=== PATIENT | female | born 1970 | race Caucasian/White ===

== ENCOUNTER 2016-11-19 14:56 | Emergency (ER) | payer OTHER ==
[~2016-11-19] VITALS: Ht 167.6 cm; Wt 62.0 kg
[2016-11-19 15:07] VITALS: BP 116/68; PULSE 90; RESP 16; TEMP 99.5; O2SAT 100
--- NOTE | 2016-11-19 15:26 | PD ---
HPI Chief Complaint: Laceration/Skin Injury Time Seen by Provider: 15:15 Travel History International Travel<30 days: No Contact w/Intl Traveler<30days: No Traveled to known affect area: No History of Present Illness HPI 46-year-old female presents emergency department for evaluation of laceration to her left third digit. Patient reports she was using hedge trimmers when she was cut by the mechanical tremors. She reports normal sensation and full range of motion of the digit. She reports pain at the site of the laceration. She decided to seek medical treatment she was unable to get the wound stopped bleeding. Tetanus immunization is up-to-date. [facility] Past Medical History Medical History: Denies Significant Hx Hx Anticoagulant Therapy: No Cancer: No Cardiovascular Problems: No Chemotherapy: No Cerebrovascular Accident: No Diabetes: No Diminished Hearing: No Endocrine: No Genitourinary: No Immune Disorder: No Musculoskeletal: No Neurologic: No Reproductive: No Respiratory: No Immunizations Current: Yes ?: Not Past Surgical History Abdominal Surgery: No Cardiac Surgery: No Ear Surgery: No Endocrine Surgery: No Eye Surgery: No Genitourinary Surgery: No Gynecologic Surgery: No Hysterectomy: No Oral Surgery: No Thoracic Surgery: No Other Surgery: Yes Social History Alcohol Use: No (QUIT 2014) Tobacco Use: No (quit many years ago) Substance Use: No Allergies-Medications (Allergen,Severity, Reaction): Coded Allergies: No Known Allergies (Verified , 11/19/16) Reported Meds & Prescriptions Reported Meds & Active Scripts Active No Active Prescriptions or Reported Medications Review of Systems Except as stated in HPI: all other systems reviewed are Neg Physical Exam Narrative GENERAL: Well-nourished, well-developed patient. SKIN: Focused skin assessment warm/dry. 1 cm laceration left second digit. HEAD: Normocephalic. EYES: No scleral icterus. No injection or drainage. NECK: Supple, trachea midline. No JVD or lymphadenopathy. CARDIOVASCULAR: Regular rate and rhythm without murmurs, gallops, or rubs. RESPIRATORY: Breath sounds equal bilaterally. No accessory muscle use. GASTROINTESTINAL: Abdomen soft, non-tender, nondistended. MUSCULOSKELETAL: No cyanosis, or edema. Left hand: 1 cm V-shaped laceration to the left second digit dorsal aspect. No tendon or vascular injury identified. No foreign body. Patient is able to flex and extend against resistance. The extremity is neurovascular intact. Data Data Last Documented VS Vital Signs Date Time Temp Pulse Resp B/P (MAP) Pulse Ox O2 Delivery O2 Flow Rate FiO2 11/19/16 15:07 99.5 90 16 116/68 (84) 100 Orders Orders Lidocaine 1% Inj (50 Ml) (Xylocaine 1% I (11/19/16 15:30) MDM Medical Decision Making Medical Screen Exam Complete: Yes Emergency Medical Condition: Yes Differential Diagnosis Finger laceration, rule out tendon injury, rule out foreign body Narrative Course 46-year-old female presents emergency department for evaluation of a small superficial laceration to the left second digit. Patient reports that injury occurred when her hand was clipped by a mechanical click. On exam there is no active bleeding. There is just 1 cm V-shaped laceration on the dorsal aspect of the digit. She has normal motor and sensation within the digit. I do not suspect any injury to the bone. Wound repaired with sutures. Wound care discussed return precautions discussed. Patient verbalizes understanding and agrees to plan. Procedures Procedure Narrative LACERATION LOCATION: Left second digit LENGTH: 1 cm NUMBER OF STITCHES/NAHUM: To REPAIR: The area of the laceration was prepped with Betadine and sterilely draped. Digital block with 1% lidocaine.. The wound was copiously irrigated and explored without evidence of foreign body, tendon injury or neurovascular injury. The wound was closed using 5-0 Ethilon. This was a single layer repair. A sterile dressing was applied. The patient was advised to keep the dressing clean and dry. Patient tolerated the procedure well. Diagnosis Primary Impression: Finger laceration Qualified Codes: S61.213A - Laceration without foreign body of left middle finger without damage to nail, initial encounter Referrals: Primary Care Physician Additional Instructions: Do not submerge the wound in water. Sutures need to be removed in 7-10 days. Return to the emergency department if he developed new or worsening symptoms. Scripts No Active Prescriptions or Reported Meds Disposition: 01 DISCHARGE HOME Condition: Stable Rosa Rahman Nov 19, 2016 15:26
[2016-11-19] MEDS ORDERED: LIDOCAINE HCL 1% 20 ML VIAL INFIL ONE (15:30)
[2016-11-19] MEDS ORDERED: LIDOCAINE HCL 1% 50 ML VIAL INFIL ONE ×2 (15:30)
== END 2016-11-19 16:06 | disposition home or self-care (01) ==
LOC: PHED 14:56 → PHEFT 16:06
DX: S61.213A Laceration without foreign body of left middle finger without damage to nail, initial encounter (principal); Z87.891 Personal history of nicotine dependence; W29.3XXA Contact with powered garden and outdoor hand tools and machinery, initial encounter; Y93.H2 Activity, gardening and landscaping
CPT/HCPCS: 12001

== ENCOUNTER 2017-10-18 19:42 | Inpatient (IN) ==
[2017-10-18] MEDS ORDERED: Aztreonam Inj 2 GM in Sodium Chloride 0.9% Inj 100 ML IV.SIG STA (20:58)
[2017-10-18] MEDS ORDERED: Vancomycin Inj 1,000 MG in Sodium Chlor 0.9% Inj 250 ML IV.SIG STA (20:58)
--- NOTE | 2017-10-18 20:59 | ED ---
HPI General Chief complaint: Skin/Abscess/Foreign Body Stated complaint: L knee DX cellulitis worse Source: patient Mode of arrival: ambulatory Limitations: no limitations History of Present Illness HPI narrative: Patient states that last Sunday she noticed what seemed like a bug bite to her left knee and some swelling. On Sunday she was seen at [facility] and diagnosed with cellulitis and placed on Keflex and Bactrim. Patient now returns stating that is getting worse and traveling down her entire leg. Patient states that she has been compliant with her medication. Onset (ago): day(s) (6) Location: left and lower extremity (Knee) Radiation: non-radiation Severity: moderate Severity scale (1-10): 8 Quality: sharp Pain Consistency: constant Relieving factors: none Exacerbating factors: none Associated symptoms: denies other symptoms Treatments prior to arrival: other (Keflex and Bactrim for approximately 4 days) Related Data Home Medications Medication Instructions Recorded Confirmed citalopram 40 mg PO DAILY 10/18/17 10/18/17 gabapentin 300 mg PO DAILY 10/18/17 10/18/17 trazodone 50 mg PO DAILY 10/18/17 10/18/17 Allergies Allergy/AdvReac Type Severity Reaction Status Date / Time No Known Allergies Allergy Uncoded 11/19/16 15:12 Review of Systems ROS: all other systems reviewed are negative PMFSH History History Provided By: Patient Medical History Medical History Anxiety (Acute) Insomnia (Acute) Neuropathy (Acute) Right wrist fracture (Acute) Surgical History Surgical History Status post wrist surgery (Acute) Family History Family History Other No pertinent family history Social History Social History Substance History: No History of Abuse Second Hand Smoke Exposure: No Smoking Status: Never smoker How Often Do You Have a Drink Containing Alcohol: Never Recent Travel in [place] within the Last 8 Weeks: No Recent Out of Country Travel within the Last 8 Weeks: No Immunization History Tetanus Immunization: <5 Years Tetanus Immunization Year if Known: 2015 Hx Influenza Vaccine This Season: No Exam Narrative Exam Narrative: GENERAL: Well-nourished, well-developed patient in no apparent distress. SKIN: Warm and dry. HEAD: Atraumatic. Normocephalic. EYES: Pupils equal and round. No scleral icterus. No injection or drainage. ENT: No nasal bleeding or discharge. Mucous membranes pink and moist. NECK: Trachea midline. No JVD. CARDIOVASCULAR: Regular rate and rhythm. no rubs or gallops RESPIRATORY: No accessory muscle use. Clear to auscultation. Breath sounds equal bilaterally. GASTROINTESTINAL: Abdomen soft, non-tender, nondistended. No rebound or guarding MUSCULOSKELETAL: Extremities without clubbing, cyanosis, or edema. No obvious deformities.....lateral to left patella is a half dollar wound mildly draining purulence, cellulitic changes and edema distally into left ankle region. (of note, initially started as dime size swelling on her knee cap area)...patient is able to flex/extend full rom and no ttp NEUROLOGICAL: Awake and alert. No obvious cranial nerve deficits. Motor grossly within normal limits. Five out of 5 muscle strength in the arms and legs. Normal speech. PSYCHIATRIC: Appropriate mood and affect; insight and judgment normal. Course Initial Documented Vital Signs Temperature 99.5 F 10/18/17 19:45 Pulse Rate 98 H 10/18/17 19:45 Respiratory Rate 18 10/18/17 19:45 Blood Pressure 131/71 10/18/17 19:45 Pulse Oximetry 98 10/18/17 19:45 Last Documented Vital Signs Temperature 98.6 F 10/19/17 15:34 Pulse Rate 81 10/19/17 15:34 Respiratory Rate 18 10/19/17 15:34 Blood Pressure 113/72 10/19/17 15:34 Pulse Oximetry 98 10/19/17 15:34 Medical Decision Making [facility] Narrative Medical Screen Exam Complete: Yes Emergency Medical Condition: Yes Differential Diagnosis Differential Diagnosis: DVT versus cellulitis versus lymphangitis versus abscess Medical Records Medical records reviewed: Yes I reviewed the patient's medical records. Lab Data Lab results reviewed: Yes I reviewed the patient's lab results. Result diagrams: 10/19/17 06:45 10/19/17 06:45 Lab Results 10/18/17 10/18/17 10/18/17 Range/Units 21:15 21:15 21:21 CBC w Diff Auto diff final WBC 8.4 (4.0-11.0) th/mm3 RBC 3.94 L (4.00-5.30) mil/mm3 Hgb 11.7 (11.6-15.3) gm/dL Hct 35.0 (35.0-46.0) % MCV 88.9 (80.0-100.0) fL MCH 29.8 (27.0-34.0) pg MCHC 33.5 (32.0-36.0) % RDW 14.4 (11.6-17.2) % Plt Count 411 (150-450) th/mm3 MPV 7.6 (7.0-11.0) fL Neut % (Auto) 62.9 (16.0-70.0) % Lymph % (Auto) 23.1 (9.0-44.0) % [place] % (Auto) 10.5 H (0.0-8.0) % Eos % (Auto) 2.9 (0.0-4.0) % Baso % (Auto) 0.6 (0.0-2.0) % Neut # (Auto) 5.3 (1.8-7.7) th/mm3 Lymph # (Auto) 1.9 (1.0-4.8) th/mm3 [place] # (Auto) 0.9 (0.0-0.9) th/mm3 Eos # (Auto) 0.2 (0.0-0.4) th/mm3 Baso # (Auto) 0.1 (0.0-0.2) th/mm3 WBC Differential . Differential Comment . Sodium 137 (136-145) meq/L Potassium 3.3 L (3.5-5.1) meq/L Chloride 102 (98-107) meq/L Carbon Dioxide 27.4 (21.0-32.0) meq/L Anion Gap 8 (5-15) meq/L BUN 15 (7-18) mg/dL Creatinine 1.10 H (0.50-1.00) mg/dL Estimated GFR 53 L (>89) mL/min Random Glucose 112 H (74-106) mg/dL Lactic Acid 1.2 (0.4-2.0) mmol/L Calcium 8.9 (8.5-10.1) mg/dL Total Bilirubin 0.3 (0.2-1.0) mg/dL AST 35 (15-37) U/L ALT 42 (10-53) U/L Alkaline Phosphatase 119 H (45-117) U/L Total Protein 8.3 H (6.4-8.2) g/dL Albumin 3.7 (3.4-5.0) g/dL 10/19/17 10/19/17 Range/Units 06:45 06:45 CBC w Diff Auto diff final WBC 6.4 (4.0-11.0) th/mm3 RBC 3.95 L (4.00-5.30) mil/mm3 Hgb 11.5 L (11.6-15.3) gm/dL Hct 35.3 (35.0-46.0) % MCV 89.5 (80.0-100.0) fL MCH 29.1 (27.0-34.0) pg MCHC 32.5 (32.0-36.0) % RDW 14.3 (11.6-17.2) % Plt Count 409 (150-450) th/mm3 MPV 7.3 (7.0-11.0) fL Neut % (Auto) 51.3 (16.0-70.0) % Lymph % (Auto) 27.1 (9.0-44.0) % [place] % (Auto) 14.9 H (0.0-8.0) % Eos % (Auto) 6.1 H (0.0-4.0) % Baso % (Auto) 0.6 (0.0-2.0) % Neut # (Auto) 3.3 (1.8-7.7) th/mm3 Lymph # (Auto) 1.7 (1.0-4.8) th/mm3 [place] # (Auto) 1.0 H (0.0-0.9) th/mm3 Eos # (Auto) 0.4 (0.0-0.4) th/mm3 Baso # (Auto) 0.0 (0.0-0.2) th/mm3 WBC Differential . Differential Comment . Sodium 144 (136-145) meq/L Potassium 4.0 (3.5-5.1) meq/L Chloride 111 H D (98-107) meq/L Carbon Dioxide 26.0 (21.0-32.0) meq/L Anion Gap 7 (5-15) meq/L BUN 14 (7-18) mg/dL Creatinine 0.83 (0.50-1.00) mg/dL Estimated GFR 73 L (>89) mL/min Random Glucose 99 (74-106) mg/dL Lactic Acid (0.4-2.0) mmol/L Calcium 8.2 L (8.5-10.1) mg/dL Total Bilirubin (0.2-1.0) mg/dL AST (15-37) U/L ALT (10-53) U/L Alkaline Phosphatase (45-117) U/L Total Protein (6.4-8.2) g/dL Albumin (3.4-5.0) g/dL Imaging Data Radiologist's impression: Chest X-Ray 10/18/17 20:59 CONCLUSION: The lungs are clear. Venous Doppler Study 10/18/17 22:33 CONCLUSION: 1. Edema within the soft tissues of the calf. 2. No DVT. Knee CT 10/19/17 00:00 CONCLUSION: 1. Nondescript soft tissue swelling and no evidence for abscess or osteomyelitis. Discharge Plan Discharge Disposition Patient Disposition: 30 Still Patient Discharge Condition Condition: Stable Discharge Details Diagnosis: Failure of outpatient treatment, Cellulitis of knee, left Physicians Team ED Provider: Matteo Obando Primary Care Provider: Jean-Claude Gutierrez Attending Provider: Yves Das Status ED Status: Left Department Discharge Information Discharge Date/Time: 10/19/17 02:24
[2017-10-18] MEDS ORDERED: Sod Chloride 0.9% Inj 1,000 ML IV.SIG ONE (21:01)
[2017-10-18 21:31] LABS: Baso # (Auto) 0.1 th/mm3 (0.0-0.2); Baso % (Auto) 0.6 % (0.0-2.0); Eos # (Auto) 0.2 th/mm3 (0.0-0.4); Eos % (Auto) 2.9 % (0.0-4.0); Hemoglobin 11.7 gm/dL (11.6-15.3); Lymph # (Auto) 1.9 th/mm3 (1.0-4.8); Lymph % (Auto) 23.1 % (9.0-44.0); Mean Corpuscular HGB Conc 33.5 % (32.0-36.0); Mean Corpuscular Hemoglobin 29.8 pg (27.0-34.0); Mean Corpuscular Volume 88.9 fL (80.0-100.0); Mean Platelet Volume 7.6 fL (7.0-11.0); Mono # (Auto) 0.9 th/mm3 (0.0-0.9); Mono % (Auto) 10.5 % (0.0-8.0); Neut # (Auto) 5.3 th/mm3 (1.8-7.7); Neut % (Auto) 62.9 % (16.0-70.0); Platelet Count 411 th/mm3 (150-450); Red Blood Count 3.94 mil/mm3 (4.00-5.30); Red Cell Distribution Width 14.4 % (11.6-17.2); White Blood Count 8.4 th/mm3 (4.0-11.0)
[2017-10-18 21:39] LABS: Chloride 102 meq/L (98-107); Potassium 3.3 meq/L (3.5-5.1); Sodium 137 meq/L (136-145)
[2017-10-18 21:43] LABS: Albumin 3.7 g/dL (3.4-5.0); Anion Gap 8 meq/L (5-15); Calcium 8.9 mg/dL (8.5-10.1); Carbon Dioxide 27.4 meq/L (21.0-32.0); Glucose,Random 112 mg/dL (74-106)
[2017-10-18 21:44] LABS: Blood Urea Nitrogen 15 mg/dL (7-18)
[2017-10-18 21:46] LABS: Alanine Aminotransferase 42 U/L (10-53); Aspartate Aminotransferase 35 U/L (15-37); Glomerular Filtration Rate 53 mL/min (>89)
[2017-10-18 21:48] LABS: Total Protein 8.3 g/dL (6.4-8.2)
[2017-10-18 21:49] LABS: Alkaline Phosphatase 119 U/L (45-117)
--- NOTE | 2017-10-18 21:54 | XR ---
EXAM DATE: 10/18/2017 9:47 PM EDT AGE/SEX: 47 years / Female INDICATIONS: Short of breath and fever. CLINICAL DATA: This is the patient's initial encounter. Patient reports that signs and symptoms have been present for 1 day and indicates a pain score of 0/10. MEDICAL/SURGICAL HISTORY: None. None. COMPARISON: [facility], CHEST SINGLE AP, 06/12/2015. . FINDINGS: A single AP view of the chest demonstrates the lungs to be symmetrically aerated without evidence of mass, infiltrate or effusion. The cardiomediastinal contours are unremarkable. Osseous structures a re intact. CONCLUSION: The lungs are clear. Electronically signed by: Fernando Shannon MD 10/18/2017 9:52 PM EDT
--- NOTE | 2017-10-18 23:21 | US ---
EXAM DATE: 10/18/2017 11:11 PM EDT AGE/SEX: 47 years / Female INDICATIONS: Left leg swelling. CLINICAL DATA: This is the patient's subsequent encounter. Patient reports that signs and symptoms h ave been present for 4 - 6 days and indicates a pain score of 4/10. MEDICAL/SURGICAL HISTORY: . Anxiety. Insomnia. Neuropathy. Right wrist fracture. None. COMPARISON: No prior exams available for comparison. TECHNIQUE: Venous ultrasound of both lower extremities was performed from the inguinal ligament to t he proximal calf. Real-time, color Doppler and spectral tracing, compression and augmentation techni ques were used. FINDINGS: Normal compression of the deep venous system from the inguinal region to the proximal calf . No echogenic clot is seen. Normal response of the venous system to augmentation and respiration. There is some edema identified in the subcutaneous tissues of the calf. CONCLUSION: 1. Edema within the soft tissues of the calf. 2. No DVT. Electronically signed by: Deng Little MD 10/18/2017 11:20 PM EDT
[2017-10-18] MEDS ORDERED: Bisacodyl 10 MG Supp RECTAL PRN (23:47)
[2017-10-18] MEDS ORDERED: Vancomycin Consult Pharmacy OTHER PRN (23:47)
[2017-10-19] MEDS ORDERED: Ketorolac Inj 30 MG/ML (IVP) Vial IV.PUSH ONE (00:04)
[2017-10-19] MEDS ORDERED: Morphine Sulfate Inj 2 MG/ML Vial IV.PUSH ONE (01:25)
[2017-10-19] MEDS ORDERED: traZODone 100 MG Tablet PO ONE (01:25)
[2017-10-19 06:55] LABS: Baso % (Auto) 0.6 % (0.0-2.0); Eos # (Auto) 0.4 th/mm3 (0.0-0.4); Eos % (Auto) 6.1 % (0.0-4.0); Hematocrit 35.3 % (35.0-46.0); Hemoglobin 11.5 gm/dL (11.6-15.3); Lymph # (Auto) 1.7 th/mm3 (1.0-4.8); Lymph % (Auto) 27.1 % (9.0-44.0); Mean Corpuscular HGB Conc 32.5 % (32.0-36.0); Mean Corpuscular Hemoglobin 29.1 pg (27.0-34.0); Mean Corpuscular Volume 89.5 fL (80.0-100.0); Mean Platelet Volume 7.3 fL (7.0-11.0); Mono % (Auto) 14.9 % (0.0-8.0); Neut # (Auto) 3.3 th/mm3 (1.8-7.7); Neut % (Auto) 51.3 % (16.0-70.0); Platelet Count 409 th/mm3 (150-450); Red Blood Count 3.95 mil/mm3 (4.00-5.30); Red Cell Distribution Width 14.3 % (11.6-17.2); White Blood Count 6.4 th/mm3 (4.0-11.0)
[2017-10-19 07:39] LABS: Calcium 8.2 mg/dL (8.5-10.1)
[2017-10-19] MEDS: Senna/Docusate Sodium 8.6/50 MG Tablet PO SCH ×2 (08:24→21:23)
--- NOTE | 2017-10-19 08:46 | P.HP ---
History of Present Illness Primary Care Physician: Jean-Claude Gutierrez Chief Complaint: left leg cellulitis History of Present Illness: This is a 47-year-old female patient with a known medical history of neuropathy and anxiety who presented to the ED with complaints of left knee and lower leg swelling. Patient states that last Sunday she noticed to bug bites on her knee that eventually became red and more swollen as well as warm to touch. She states that she has had intermittent drainage using from the site. And over the course of the weekend the pain in her knee as well as swelling and redness just became worse, leading to her presentation in [facility]. She states at that time she was seen in the emergency room and placed on Keflex and Bactrim and sent home. She states that Sunday morning her symptoms continued to get worse and the redness extended down her entire left leg. She does admit to generalized aching denies any fevers, chills, cough, shortness of breath, dumping, nausea, vomiting, diarrhea or dysuria. She denies any chest pain. CT of the left knee without abscess or osteomyelitis. No fever since admission. - Diagnosis (1) Failure of outpatient treatment (2) Cellulitis of knee, left Review of Systems All other systems reviewed negative except as stated in HPI PMFSH - History History Provided By: Patient - Medical History Medical History: Medical History (Last Reviewed 10/18/17 @ 20:57 by Matteo Obando) Anxiety Insomnia Neuropathy Right wrist fracture - Surgical History Surgical History: Surgical History (Last Updated 10/19/17 @ 10:40 by Brianna Silva) Status post wrist surgery - Family History Family History: Family History (Last Updated 10/19/17 @ 10:40 by Brianna Silva) Other No pertinent family history - Tobacco History Second Hand Smoke Exposure: No Tobacco Use In Past 30 Days: No Smoking Status: Never smoker - Alcohol History How Often Do You Have a Drink Containing Alcohol: Never - Substance Use History Substance History: No History of Abuse - Travel History Recent Travel in the [place] Within the Last 8 Weeks: No Recent Travel Out of the Country Within the Last 8 Weeks: No - Immunization History Tetanus Immunization: <5 Years Tetanus Immunization Year if Known: 2015 Hx Influenza Vaccine This Season: No Medications and Allergies Active Medications: Active Medications Acetaminophen (Tylenol) 650 mg PO Q4H PRN PRN Reason: Temp > 100.4 Al Hydroxide/Mg Hydroxide (Milk Of Magnesia Liq) 30 ml PO Q12H PRN PRN Reason: Mild Constipation Bisacodyl (Dulcolax Supp) 10 mg RECTAL DAILY PRN PRN Reason: SEVERE CONSITIPATION Vancomycin HCl 1,250 mg/ (Sodium Chloride) 275 mls @ 275 mls/hr IV.SIG Q18H FLAQUITA Aztreonam 1,000 mg/ Sodium (Chloride) 100 mls @ 200 mls/hr IV.SIG Q8H [facility] Last Admin: 10/19/17 08:23 Dose: 200 mls/hr Lactulose (Lactulose Liq) 30 ml PO DAILY PRN PRN Reason: SEVERE CONSITIPATION Miscellaneous Information ([facility] Ordered Lab Info) 0 each OTHER ONCE ONE Stop: 10/20/17 08:46 Ondansetron HCl (Zofran Inj) 4 mg IV.PUSH Q6H PRN PRN Reason: NAUSEA OR VOMITING Pharmacy Profile Note (Vancomycin Consult Pharmacy) 1 each OTHER UNSCH PRN PRN Reason: Pharmacy to dose Senna/Docusate Sodium (Jenni-Colace) 1 tab PO BID [facility] Last Admin: 10/19/17 08:24 Dose: 1 tab Sennosides (Senokot) 17.2 mg PO Q12H PRN PRN Reason: Moderate Constipation Allergies Allergy/AdvReac Type Severity Reaction Status Date / Time No Known Allergies Allergy Uncoded 11/19/16 15:12 Home Medications Medication Instructions Recorded Confirmed Type citalopram 40 mg PO DAILY 10/18/17 10/18/17 History gabapentin 300 mg PO DAILY 10/18/17 10/18/17 History trazodone 50 mg PO DAILY 10/18/17 10/18/17 History Exam Vital signs: Vital Signs 10/18/17 19:45 10/18/17 22:59 10/19/17 00:15 Temperature 99.5 F Pulse Rate 98 H 87 79 Respiratory Rate 18 18 18 Blood Pressure 131/71 138/72 119/74 Pulse Oximetry 98 99 99 10/19/17 02:00 Temperature 97.1 F L Pulse Rate 90 Respiratory Rate 16 Blood Pressure 110/74 Pulse Oximetry 99 Intake & Output 10/18/17 10/19/17 10/19/17 18:59 06:59 18:59 Intake Total 1350 / 1350 Output Total 0 / 0 Balance 1350 / 1350 Weight 68.3 kg Intake: IV 1350 / 1350 Azactam Inj 2 GM In NS Inj 100 100 / 100 ML @ 200 mls/hr IV.SIG STAT STA Rx#:[id number] NS Inj 1,000 ML @ Wide Open IV. 1000 / 1000 SIG BOLUS ONE Rx#:[id number] Vancomycin Inj 1,000 MG In NS 250 / 250 Inj 250 ML @ 250 mls/hr IV.SIG STAT STA Rx#:[id number] Output: Urine 0 / 0 Other: Weight On Admission 68.1 kg Narrative: GENERAL: Well-developed, well-nourished patient in [facility]. SKIN: Warm and dry. Left lower extremity swelling, erythema and warm to touch. Left knee with swelling, some fluctuance noted, serous fluid draining. Mild pain to palpation. HEAD: Normocephalic. Atraumatic. EYES: Pupils equal and round. No scleral icterus. No injection or drainage. ENT: No nasal bleeding or discharge. Mucous membranes pink and moist. NECK: Supple. Trachea midline. CARDIOVASCULAR: Regular rate and rhythm. S1, S2 noted. No murmur appreciated. RESPIRATORY: No accessory muscle use. Clear to auscultation. Breath sounds equal bilaterally. GASTROINTESTINAL: Abdomen soft, non-tender, nondistended. Normoactive bowel sounds x4. MUSCULOSKELETAL: No obvious deformities. Extremities without clubbing, cyanosis , or edema. NEUROLOGICAL: Awake and alert. No obvious cranial nerve deficits. Motor grossly within normal limits. 5/5 muscle strength in bilateral upper and lower extremities. Normal speech. PSYCHIATRIC: Appropriate mood and affect; insight and judgment normal. Results - Labs CBC & Chem 7: 10/19/17 06:45 10/19/17 06:45 Labs: Laboratory Results - last 24 hr 10/18/17 10/18/17 10/18/17 21:15 21:15 21:21 CBC w Diff Auto diff final WBC 8.4 RBC 3.94 L Hgb 11.7 Hct 35.0 MCV 88.9 MCH 29.8 MCHC 33.5 RDW 14.4 Plt Count 411 MPV 7.6 Neut % (Auto) 62.9 Lymph % (Auto) 23.1 [place] % (Auto) 10.5 H Eos % (Auto) 2.9 Baso % (Auto) 0.6 Neut # (Auto) 5.3 Lymph # (Auto) 1.9 [place] # (Auto) 0.9 Eos # (Auto) 0.2 Baso # (Auto) 0.1 WBC Differential . Differential Comment . Sodium 137 Potassium 3.3 L Chloride 102 Carbon Dioxide 27.4 Anion Gap 8 BUN 15 Creatinine 1.10 H Estimated GFR 53 L Random Glucose 112 H Lactic Acid 1.2 Calcium 8.9 Total Bilirubin 0.3 AST 35 ALT 42 Alkaline Phosphatase 119 H Total Protein 8.3 H Albumin 3.7 10/19/17 10/19/17 06:45 06:45 CBC w Diff Auto diff final WBC 6.4 RBC 3.95 L Hgb 11.5 L Hct 35.3 MCV 89.5 MCH 29.1 MCHC 32.5 RDW 14.3 Plt Count 409 MPV 7.3 Neut % (Auto) 51.3 Lymph % (Auto) 27.1 [place] % (Auto) 14.9 H Eos % (Auto) 6.1 H Baso % (Auto) 0.6 Neut # (Auto) 3.3 Lymph # (Auto) 1.7 [place] # (Auto) 1.0 H Eos # (Auto) 0.4 Baso # (Auto) 0.0 WBC Differential . Differential Comment . Sodium 144 Potassium 4.0 Chloride 111 H D Carbon Dioxide 26.0 Anion Gap 7 BUN 14 Creatinine 0.83 Estimated GFR 73 L Random Glucose 99 Lactic Acid Calcium 8.2 L Total Bilirubin AST ALT Alkaline Phosphatase Total Protein Albumin - Imaging Impressions Chest X-Ray 10/18/17 20:59 CONCLUSION: The lungs are clear. Venous Doppler Study 10/18/17 22:33 CONCLUSION: 1. Edema within the soft tissues of the calf. 2. No DVT. Caprini VTE Risk Assessment Caprini VTE Risk Assessment: No/Low Risk (score <= 1) Caprini Risk Assessment Model: Point Value = 1 Point Value = 2 Point Value = 3 Point Value = 5 Age 41-60 Minor surgery BMI > 25 kg/m2 Swollen legs Varicose veins or History of unexplained or recurrent spontaneous Oral contraceptives or hormone replacement Sepsis (< 1 month) Serious lung disease, including pneumonia (< 1 month) Abnormal pulmonary function Acute myocardial infarction Congestive heart failure (< 1 month) History of inflammatory bowel disease Medical patient at bed rest Age 61-74 Arthroscopic surgery Major open surgery (> 45 min) Laparoscopic surgery (> 45 min) Malignancy Confined to bed (> 72 hours) Immobilizing plaster cast Central venous access Age >= 75 History of VTE Family history of VTE Factor V Leiden Prothrombin [id number] Lupus anticoagulant Anticardiolipin antibodies Elevated serum homocysteine Heparin-induced thrombocytopenia Other congenital or acquired thrombophilia Stroke (< 1 month) Elective arthroplasty Hip, pelvis, or leg fracture Acute spinal cord injury (< 1 month) Prophylaxis Regimen: Total Risk Factor Score Risk Level Prophylaxis Regimen 0-1 Low Early ambulation 2 Moderate Order ONE of the following: *Sequential Compression Device (SCD) *Heparin 5000 units SQ BID 3-4 Higher Order ONE of the following medications: *Heparin 5000 units SQ TID *Enoxaparin/Lovenox 40 mg SQ daily (WT < 150 kg, CrCl > 30 mL/min) *Enoxaparin/Lovenox 30 mg SQ daily (WT < 150 kg, CrCl > 10-29 mL/min) *Enoxaparin/Lovenox 30 mg SQ BID (WT < 150 kg, CrCl > 30 mL/min) AND/OR *Sequential Compression Device (SCD) 5 or more Highest Order ONE of the following medications: *Heparin 5000 units SQ TID (Preferred with Epidurals) *Enoxaparin/Lovenox 40 mg SQ daily (WT < 150 kg, CrCl > 30 mL/min) *Enoxaparin/Lovenox 30 mg SQ daily (WT < 150 kg, CrCl > 10-29 mL/min) *Enoxaparin/Lovenox 30 mg SQ BID (WT < 150 kg, CrCl > 30 mL/min) AND *Sequential Compression Device (SCD) Assessment and Plan - Assessment (1) Failure of outpatient treatment Code(s): Z78.9 - Other specified health status Status: Acute (2) Cellulitis of knee, left Code(s): L03.116 - Cellulitis of left lower limb Status: Acute - Plan This is a 47-year-old female patient with: Left lower extremity cellulitis Failed outpatient antibiotic therapy -Patient presented with 6-day history of left lower extremity swelling, erythema and pain. -Was initially prescribed Keflex and Bactrim, despite compliance presents with worsening symptoms. -Patient does not meet sepsis criteria. No fever, no leukocytosis. Lactic acid WNL. Will continue to monitor. -Wound culture obtained from knee, await culture. Blood cultures also pending. -Left lower extremity Venous Doppler showing no DVT. -Left CT of the knee showing no abscess or osteomyelitis, some soft tissue swelling. -Started on Azactam and Vanco in Ed, will continue. -Supportive care. Await clinical improvement. Hypotension: BP with systolic in the 80's. Will give IVF bolus as well as start IVF. Will continue to monitor closely. Patient is asymptomatic. DVT Prophylaxis: SCDs. Ambulation.
[2017-10-19] MEDS: Gabapentin 300 MG Capsule PO SCH (10:03)
--- NOTE | 2017-10-19 10:07 | CT ---
EXAM DATE: 10/19/2017 9:56 AM EDT AGE/SEX: 47 years / Female INDICATIONS: Left knee and lower leg pain, swelling and redness x 1 week. Evaluate for abscess. CLINICAL DATA: This is the patient's initial encounter. Patient reports that signs and symptoms have been present for 1 week and indicates a pain score of 4/10. MEDICAL/SURGICAL HISTORY: None. None. RADIATION DOSE: 11.42 CTDI (mGy) COMPARISON: No prior exams available for comparison. TECHNIQUE: Multiple contiguous axial images were acquired using a multirow detector CT scanner witho ut contrast. Multiplanar reconstruction was performed in the sagittal and coronal planes. Using aut omated exposure control and adjustment of the mA and/or kV according to patient size, radiation dose was kept as low as reasonably achievable to obtain optimal diagnostic quality images. DICOM format i mage data is available electronically for review and comparison. FINDINGS: There are degenerative changes in the patellofemoral joint with some degree of chondromalacia and alanna e articular cystic formation involving the patella. Significant soft tissue swelling is present in th e prepatellar location in the subcutaneous tissue extending along the anterior margins of the patella r tendon. No definite focal pocket of abscess. Minimal joint effusion is seen. There are no signs of osteomyelitis. CONCLUSION: 1. Nondescript soft tissue swelling and no evidence for abscess or osteomyelitis. Electronically signed by: Carlos Hassan MD 10/19/2017 10:06 AM EDT
[2017-10-19] MEDS ORDERED: Sodium Chlor 0.9% Inj 500 ML IV.SIG SCH (11:00)
[2017-10-19] MEDS: Sod Chloride 0.9% Inj 1,000 ML IV.CONT SCH ×2 (11:05→23:20)
[2017-10-19] MEDS: Vancomycin Inj 1,250 MG in Sodium Chlor 0.9% Inj 250 ML IV.SIG SCH (15:21)
[2017-10-19] MEDS: Acetaminophen 325 MG Tablet PO PRN (21:23)
[2017-10-19] MEDS: traZODone 50 MG Tablet PO SCH (21:24)
[2017-10-20] MEDS: Acetaminophen 325 MG Tablet PO PRN ×2 (06:21→17:11)
[2017-10-20] MEDS: Senna/Docusate Sodium 8.6/50 MG Tablet PO SCH ×2 (08:39→21:49)
[2017-10-20] MEDS: Gabapentin 300 MG Capsule PO SCH (08:40)
[2017-10-20] MEDS ORDERED: Pharmacy Ordered Lab Info OTHER ONE (08:45)
[2017-10-20] MEDS: Vancomycin Inj 1,250 MG in Sodium Chlor 0.9% Inj 250 ML IV.SIG SCH (09:35)
--- NOTE | 2017-10-20 10:40 | P.PN ---
Subjective Interval history: Follow-up left leg cellulitis. Patient seen and examined, sleeping in bed. Awakens once. Pain is well controlled. Denies any acute events overnight. Vital signs stable. Afebrile. Awaiting blood cultures. Awaiting wound culture. Continue IV antibiotics. Lower extremity improved overnight, erythema diminishing. Physical Exam Vital signs: Vital Signs 10/19/17 12:00 10/19/17 15:34 10/19/17 20:00 Temperature 97.4 F L 98.6 F 98.7 F Pulse Rate 75 81 94 H Respiratory Rate 18 18 16 Blood Pressure 105/62 113/72 131/62 Pulse Oximetry 97 98 99 10/20/17 00:00 10/20/17 08:00 Temperature 98.0 F 97.6 F Pulse Rate 79 76 Respiratory Rate 16 16 Blood Pressure 129/78 98/65 L Pulse Oximetry 100 97 Intake & Output 10/19/17 10/20/17 10/20/17 18:59 06:59 18:59 Intake Total 1855 / 1855 1200 / 1200 100 / 100 Balance 1855 / 1855 1200 / 1200 100 / 100 Weight 69.4 kg Intake: IV 875 / 875 1200 / 1200 100 / 100 NS Inj 1,000 ML @ 84 mls/hr IV. 1000 / 1000 CONT .[id number] [facility] Rx#: [id number] Azactam Inj 1,000 MG In NS Inj 100 / 100 200 / 200 100 / 100 100 ML @ 200 mls/hr IV.SIG Q8H [facility] Rx#:[id number] NS Inj 500 ML @ Wide Open IV. 500 / 500 SIG BOLUS [facility] Rx#:[id number] Vancomycin Inj 1,250 MG In NS 275 / 275 Inj 250 ML @ 275 mls/hr IV.SIG Q18H [facility] Rx#:[id number] Oral 980 / 980 Other: # Voids 5 2 # Bowel Movements 0 Narrative: GENERAL: Well-developed, well-nourished patient in NAD. SKIN: Warm and dry. No rash. Left lower leg erythema and swelling has improved. Left knee scabbing, no drainage today. Erythema much improved. No pain to palpation. HEAD: Normocephalic. Atraumatic. EYES: Pupils equal and round. No scleral icterus. No injection or drainage. ENT: No nasal bleeding or discharge. Mucous membranes pink and moist. NECK: Supple. Trachea midline. CARDIOVASCULAR: Regular rate and rhythm. S1, S2 noted. No murmur appreciated. RESPIRATORY: No accessory muscle use. Clear to auscultation. Breath sounds equal bilaterally. GASTROINTESTINAL: Abdomen soft, non-tender, nondistended. Normoactive bowel sounds x4. MUSCULOSKELETAL: No obvious deformities. Extremities without clubbing, cyanosis , or edema. NEUROLOGICAL: Awake and alert. No obvious cranial nerve deficits. Motor grossly within normal limits. 5/5 muscle strength in bilateral upper and lower extremities. Normal speech. PSYCHIATRIC: Appropriate mood and affect; insight and judgment normal. Results - Labs CBC & Chem 7: 10/19/17 06:45 10/19/17 06:45 Microbiology 10/19/17 09:00 Wound - Knee Gram Stain - Final 10/18/17 21:21 Blood - Peripheral Aerobic Blood Culture - Preliminary No growth in 1 day 10/18/17 21:21 Blood - Peripheral Anaerobic Blood Culture - Preliminary No growth in 1 day 10/18/17 21:15 Blood - Peripheral Aerobic Blood Culture - Preliminary No growth in 1 day 10/18/17 21:15 Blood - Peripheral Anaerobic Blood Culture - Preliminary No growth in 1 day Assessment and Plan - Assessment (1) Failure of outpatient treatment Code(s): Z78.9 - Other specified health status Status: Acute (2) Cellulitis of knee, left Code(s): L03.116 - Cellulitis of left lower limb Status: Acute - Plan This is a 47-year-old female patient with: Left lower extremity cellulitis Failed outpatient antibiotic therapy -Patient presented with 6-day history of left lower extremity swelling, erythema and pain. -Was initially prescribed Keflex and Bactrim, despite compliance presents with worsening symptoms. -Patient does not meet sepsis criteria. No fever, no leukocytosis. Lactic acid WNL. Will continue to monitor. -Wound culture obtained from knee, await culture. Blood cultures no growth to date. Monitor growth. -Left lower extremity Venous Doppler showing no DVT. -Left CT of the knee showing no abscess or osteomyelitis, some soft tissue swelling. -Started on Azactam and Vanco in Ed, will continue. -Supportive care. Await clinical improvement. Much improved overnight. Will benefit from one more day of IV antibiotics. Hypotension: Resolved. BP with systolic in the 80's yesterday. S/p bolus. Improved today. Monitor. DVT Prophylaxis: SCDs. Ambulation.
[2017-10-20] MEDS: Sod Chloride 0.9% Inj 1,000 ML IV.CONT SCH ×2 (14:00→23:47)
[2017-10-20] MEDS: traZODone 50 MG Tablet PO SCH (21:49)
[2017-10-20] MEDS ORDERED: Vancomycin Inj 1,000 MG in Sodium Chlor 0.9% Inj 250 ML IV.SIG SCH (22:00)
--- NOTE | 2017-10-21 08:19 | P.DS ---
Date of admission: 10/19/17 09:34 Primary care physician: Jean-Claude Gutierrez Attending physician on discharge: Lis Dunlap Anticipated date of discharge: 10/21/17 Brief History from admission: This is a 47-year-old female patient with a known medical history of neuropathy and anxiety who presented to the ED with complaints of left knee and lower leg swelling. Patient states that last Sunday she noticed to bug bites on her knee that eventually became red and more swollen as well as warm to touch. She states that she has had intermittent drainage using from the site. And over the course of the weekend the pain in her knee as well as swelling and redness just became worse, leading to her presentation in [facility]. She states at that time she was seen in the emergency room and placed on Keflex and Bactrim and sent home. She states that Sunday morning her symptoms continued to get worse and the redness extended down her entire left leg. She does admit to generalized aching denies any fevers, chills, cough, shortness of breath, dumping, nausea, vomiting, diarrhea or dysuria. She denies any chest pain. CT of the left knee without abscess or osteomyelitis. No fever since admission. DS: Diagnosis - Discharge Diagnosis (1) Failure of outpatient treatment Status: Acute (2) Cellulitis of knee, left Status: Acute DS: Summary Hospital Course: This is a 47-year-old female patient presented to the ED with left lower extremity cellulitis. She did fail outpatient antibiotic therapy with Keflex and Bactrim. She states that she had a 6-day history of left lower extremity swelling, redness and pain. She did not meet sepsis criteria on presentation, she did not have fever or leukocytosis during hospitalization. Lactic acid was normal. Wound culture was obtained from the knee, initially the left knee had drainage. Upon day of discharge knee has improved significantly, no fluctuance , redness is almost resolved. No pain to palpation. Wound culture is growing MRSA. Blood cultures no growth to date. A left lower extremity venous Doppler was also done showing no DVT. A CT of the knee was also done showing no abscess or osteomyelitis just soft tissue swelling. This has improved significantly since presentation. Patient was started on Azactam and vancomycin IV and continued during hospitalization. Patient was transitioned over to p.o. antibiotics Augmentin, since she failed outpatient Keflex and Bactrim. Patient encouraged to finish complete entire dose. Patient's blood pressure has improved, she was additionally hypotensive. She was given IV fluids and boluses. Her blood pressure is stable upon day of discharge. She denies any current complaints. Pain in her left lower extremity has improved. Encouraged patient to clean knee daily and apply bacitracin with new dressing every day. Patient states she will comply and finish antibiotics. Encourage patient to follow-up with PCP. - Time Spent with Patient Total time spent providing and/or coordinating discharge services: Greater than 30 minutes - Quality: VTE Deep Vein Thrombosis/Pulmonary Embolism Present on Admission: No Exam Vital signs: Vital Signs 10/20/17 12:00 10/20/17 16:00 10/20/17 20:00 Temperature 98.8 F 98.4 F 97.7 F Pulse Rate 92 H 86 85 Respiratory Rate 20 20 20 Blood Pressure 127/84 118/81 120/85 Pulse Oximetry 98 100 98 10/21/17 00:00 Temperature 97.9 F Pulse Rate 90 Respiratory Rate 20 Blood Pressure 99/61 L Pulse Oximetry 97 Intake & Output 10/20/17 10/21/17 10/21/17 18:59 06:59 18:59 Intake Total 2395 / 2395 1350 / 1350 Balance 2395 / 2395 1350 / 1350 Weight 69.4 kg Intake: IV 1475 / 1475 1350 / 1350 NS Inj 1,000 ML @ 84 mls/hr IV. 1000 / 1000 1000 / 1000 CONT .[id number] [facility] Rx#: [id number] Azactam Inj 1,000 MG In NS Inj 200 / 200 100 / 100 100 ML @ 200 mls/hr IV.SIG Q8H [facility] Rx#:[id number] Vancomycin Inj 1,000 MG In NS 250 / 250 Inj 250 ML @ 250 mls/hr IV.SIG Q12H [facility] Rx#:[id number] Vancomycin Inj 1,250 MG In NS 275 / 275 Inj 250 ML @ 275 mls/hr IV.SIG Q18H [facility] Rx#:[id number] Oral 920 / 920 Other: # Voids 4 # Bowel Movements 2 Narrative: GENERAL: Well-developed, well-nourished patient in NAD. SKIN: Warm and dry. No rash. Left lower extremity erythema much improved, there is mild erythema and swelling at the ankle although this is diminished significantly since presentation. Left knee with scabbing. No fluctuance noted. Erythema has improved, mild pink color around area of scab. No pain to palpation. HEAD: Normocephalic. Atraumatic. EYES: Pupils equal and round. No scleral icterus. No injection or drainage. ENT: No nasal bleeding or discharge. Mucous membranes pink and moist. NECK: Supple. Trachea midline. CARDIOVASCULAR: Regular rate and rhythm. S1, S2 noted. No murmur appreciated. RESPIRATORY: No accessory muscle use. Clear to auscultation. Breath sounds equal bilaterally. GASTROINTESTINAL: Abdomen soft, non-tender, nondistended. Normoactive bowel sounds x4. MUSCULOSKELETAL: No obvious deformities. Extremities without clubbing, cyanosis. Trace left lower extremity swelling in ankle. NEUROLOGICAL: Awake and alert. No obvious cranial nerve deficits. Motor grossly within normal limits. 5/5 muscle strength in bilateral upper and lower extremities. Normal speech. PSYCHIATRIC: Appropriate mood and affect; insight and judgment normal. Results Procedures completed during hospitalization: None. Labs on day of discharge: Labs from last 24 hours 10/20/17 09:10 Vancomycin Trough 5.0 Preliminary micro results at discharge 10/19/17 09:00 Wound Culture - Preliminary Wound - Knee S. aureus MRSA 10/18/17 21:21 Aerobic Blood Culture - Preliminary Blood - Peripheral No growth in 2 days Anaerobic Blood Culture - Preliminary No growth in 2 days 10/18/17 21:15 Aerobic Blood Culture - Preliminary Blood - Peripheral No growth in 2 days Anaerobic Blood Culture - Preliminary No growth in 2 days - Impressions ITS Impressions Chest X-Ray 10/18/17 20:59 CONCLUSION: The lungs are clear. Venous Doppler Study 10/18/17 22:33 CONCLUSION: 1. Edema within the soft tissues of the calf. 2. No DVT. Knee CT 10/19/17 00:00 CONCLUSION: 1. Nondescript soft tissue swelling and no evidence for abscess or osteomyelitis. Discharge Plan - Discharge Disposition Patient Disposition: 01 Discharge Home - Discharge Condition Condition: Stable - Discharge Details Anticipated Discharge Date: 10/21/17 - Physicians Team Primary Care Provider: Jean-Claude Gutierrez Attending Provider: Lis Dunlap
[2017-10-21] MEDS: Acetaminophen 325 MG Tablet PO PRN (08:38)
[2017-10-21] MEDS: Gabapentin 300 MG Capsule PO SCH (08:39)
[2017-10-21] MEDS: Senna/Docusate Sodium 8.6/50 MG Tablet PO SCH (08:39)
[2017-10-21] MEDS ORDERED: Pharmacy Ordered Lab Info OTHER ONE (21:45)
== END 2017-10-21 10:56 | disposition home or self-care (01) ==
LOC: PHED 19:42 → PHEDA 19:42 → PH3 10-19 01:42
PROVIDERS: ADMIT Hospitalist; ATTEND Hospitalist